=== PATIENT | female | born 2000 | race Asian ===

== ENCOUNTER 2022-04-22 15:49 | Observation (INO) | payer OTHER, SELFPAY ==
[2022-04-22] VITALS (23 sets, daily range): BP systolic 90–119; BP diastolic 62–90; PULSE 73–231; RESP 13–39; TEMP 36.6–36.9; O2SAT 94–100; BMI 28.4
--- NOTE | ~2022-04-22 | CT_ITS ---
EXAMINATION: CTA chest PE protocol DATE: 04/22/2022 20:50 INDICATION: Chest pain. TECHNIQUE: Computed tomography angiography (CTA) of the chest was performed with 100 mL Omnipaque-350 intravenous contrast timed to evaluate the pulmonary arteries. Coronal maximum intensity projection 3D-reconstructions were created by the technologist. Automated exposure control and iterative reconst ruction technique were employed. The dose-length product was 187.45 mGy-cm. COMPARISON: None. FINDINGS: The lung volumes are small. There are groundglass opacities in the lower lobes and left upp er lobe. No pleural effusion. The heart size is normal. No pericardial effusion. There is no pulmonar y embolus. The bones are unremarkable. IMPRESSION: 1. No pulmonary embolus. 2. Small lung volumes and groundglass opacities in the lower lobes and left upper lobe, which may be atelectasis and/or mild pulmonary edema. Reviewed, dictated and finalized at location A. FIRST ASSIST REGISTERED NURSE IMPRESSION: 1. No pulmonary embolus. 2. Small lung volumes and groundglass opacities in the lower lobes and left upp er lobe, which may be atelectasis and/or mild pulmonary edema.
--- NOTE | ~2022-04-22 | XR_ITS ---
EXAMINATION: XR chest 1V portable 04/22/2022 16:25 INDICATION: Supraventricular tachycardia PROCEDURE: AP portable chest COMPARISON: No prior studies for comparison. FINDINGS: The lungs are clear. The cardiomediastinal silhouette is within normal limits. There are no pleural effusions. There is no pneumothorax suspected. IMPRESSION: 1: NO ACUTE CARDIOPULMONARY DISEASE. Reviewed, dictated and finalized at location A. S ARCHITECT
--- NOTE | 2022-04-22 15:57 | ECG_ITS ---
Rate 79 ID 165 QRSd 81 QT 337 QTc 388 --[place]-- P 49 QRS 30 T 2 SINUS RHYTHM MINOR NONSPECIFIC T-WAVE FLATTENING BORDERLINE ECG Electronically Signed On 04-23-2022 15:05:36 COAGULATING OPERATOR by Cyrus Swanson M.D. NO PREVIOUS ECG AVAILABLE [facility]
--- NOTE | 2022-04-22 15:57 | PC.NURSE ---
Pt given 12 Adenosine given IVP per COLTON Patterson at bedside, HR 226 at this time.
[2022-04-22] MEDS: ADENOSINE IV SOLN 6 MG/2 ML VIAL 12 MG IV PUSH (16:02)
[2022-04-22] MEDS: SODIUM CHLORIDE 0.9% IV 1,000 ML 999 ML IV CONT (16:02)
[2022-04-22] MEDS: ONDANSETRON INJ 4 MG/2 ML VIAL IV PUSH (16:03)
--- NOTE | 2022-04-22 16:07 | ED.GENADULT ---
HPI - General Adult General Chief complaint: Chest Pain Stated complaint: SOB CP ADENOSINE 6MG/12MG History of Present Illness HPI narrative: 21-year-old female presented the emergency department for evaluation of chest pain and tachycardia. Patient reports that she has a possible prior history of SVT when she was in the but this was not treated with cardiac medications. Patient states prior to arrival she had onset of the rapid heart rate. Patient did call EMS for the symptoms. Patient was treated with 6 and 12 of Adenocard and did have cardioversion back to normal sinus rhythm. Upon arrival to the emergency department patient once again switched back to SVT. During her periods of SVT patient had significant chest pain. Patient denies any prior significant past medical history. Patient denies any heavy use of caffeine or stimulants. Patient denies any alcohol consumption. Patient denies any prior cardiac history. Related Data Home Medications Medication Instructions Recorded Confirmed No Home Medications 04/22/22 04/22/22 Allergies Allergy/AdvReac Type Severity Reaction Status Date / Time No Known Allergies Allergy Verified 04/22/22 16:01 Review of Systems Review of Systems: CONSTITUTIONAL: Denies fever, chills, or sweats. EYES: Denies visual changes, redness, or discharge. ENT: Denies rhinorrhea, congestion, sore throat, or otalgia. CARDIOVASCULAR: See HPI RESPIRATORY: Denies cough or dyspnea. GASTROINTESTINAL: Denies abdominal pain, nausea, vomiting, or diarrhea. GENITOURINARY: Denies dysuria or hematuria. SKIN: Denies rash or itching. MUSCULOSKELETAL: Denies back pain, joint pain, or myalgia. NEUROLOGIC: Denies headache, numbness, or weakness. 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 She has no children . She is not . She denies any alcohol marijuana or illicit drugs. She is single but has a significant other. Code status full code Smoking status: Never smoker Alcohol intake: current Drinks per week: 1 Substance use: never Lack of Transportation: No Lack of Food: Never True Current Housing: I Have Housing Concerned About Future Housing: No Difficulty Paying Gas/Electric Bills: No Difficulty Paying for Meds: No Currently Unemployed: No Education: Bachelor's Degree Difficulty w/ Childcare or Family Care: No Spiritual care concerns: No Exam Narrative: APPEARANCE: Well appearing, no pain, no distress, well-nourished. HEAD: normocephalic, atraumatic. EYES: PERRLA/EOMI, conjunctivae clear. NOSE: Normal no drainage EARS:TMS clear with good light reflex. THROAT: Pharynx clear, no exudate. NECK: Supple. No adenopathy, no masses. RESPIRATORY: Airway patent, respirations nonlabored. Clear to auscultation bilaterally, no rales, rhonchi, wheezing. CARDIOVASCULAR: Tachycardia with a heart rate into the 220s ABDOMINAL: Soft, nontender, nondistended, normal bowel sounds MUSCULOSKELETAL: Moves all extremities. Strength/ROM intact, No edema, No calf tenderness. NEURO: Alert. Cranial nerves II through XII intact. Grossly intact SKIN: Warm, dry. Normal Color Course Course Emergency Course: 21-year-old female with SVT and chest pain. Patient was initially converted with 6 of Adenocard by EMS. Patient then symptomatic into SVT and then was converted again with 12 of Benicar. Upon arrival to emergency de
[2022-04-22] MEDS: METOPROLOL TARTRATE INJ 5 MG/5 ML VIAL 15 MG (16:11)
[2022-04-22] MEDS: AMIODARONE 150 MG/D5W 100 ML 150 MG/100 ML BAG 600 MG IV CONT (16:17)
[2022-04-22] MEDS: AMIODARONE 360 MG/D5W 200 ML 360 MG/200 ML BAG 33.33 MG IV CONT (16:18)
[2022-04-22] MEDS: MORPHINE SULFATE (*CRX) 4 MG/ML INJ (16:21)
[2022-04-22 16:28] LABS: Basophils Percent Auto 0.4 % (0.2-1.2); Eosinophils Absolute Auto 0.1 K/mm3 (0-0.3); Eosinophils Percent Auto 0.8 % (0-4.4); Hematocrit 36.4 % (37.0-47.0); Immature Granulocyte Absolute 0.02 K/mm3 (0.00-0.031); Immature Granulocyte Percent A 0.3 % (0-0.5); Lymphocytes Absolute Auto 2.36 K/mm3 (0.9-3.2); Lymphocytes Percent Auto 31.5 % (18.3-44.2); Mean Corpuscular Hemoglobin 30.9 pg (26-34); Mean Corpuscular Volume 93.8 fl (80-100); Mean Platelet Volume 10.1 fl (7.4-10.4); Monocytes Absolute Auto 0.3 K/mm3 (0.1-0.6); Monocytes Percent Auto 3.9 % (2.6-8.5); Neutrophils Absolute Auto 4.7 K/mm3 (1.3-6.7); Neutrophils Percent Auto 63.1 % (45.5-73.1); Platelet Count Result 333 k/mm3 (150-375); Red Blood Count 3.88 M/mm3 (4.2-5.4); Red Cell Distribution Width 12.4 % (11.5-14.5); White Blood Count 7.5 K/mm3 (4.5-10.0)
[2022-04-22 16:37] LABS: Alanine Aminotransferase 15 U/L (6-35); Albumin Level 3.9 g/dL (3.5-5.1); Alkaline Phosphatase 49 U/L (38-126); Anion Gap 3 mmol/L (8-16); Aspartate Amino Transferase 22 U/L (14-36); Bilirubin,Total 0.3 mg/dL (0.2-1.3); Blood Urea Nitrogen 8 mg/dL (7-17); Calcium 8.4 mg/dL (8.4-10.2); Carbon Dioxide 28 mmol/L (22-30); Chloride 105 mmol/L (98-107); Estimated Glomerular Filt Rate > 60; Glucose 73 mg/dL (65-110); Magnesium 1.9 mg/dL (1.6-2.3); Phosphorus 2.4 mg/dL (2.5-4.5); Potassium 3.4 mmol/L (3.4-5.0); Sodium 136 mmol/L (137-145)
[2022-04-22 16:49] LABS: Troponin I 0.018 ng/mL (0.000-0.034)
[2022-04-22] MEDS: SODIUM CHLORIDE 0.9% IV 1,000 ML 100 ML IV CONT (17:26)
--- NOTE | 2022-04-22 17:50 | ECG_ITS ---
Measurements Intervals [place] Rate: 77 P: 28 HI: 145 QRS: 33 QRSD: 72 T: 3 QT: 349 QTc: 396 Interpretive Statements SINUS RHYTHM NONSPECIFIC T-WAVE ABNORMALITY COMPARED TO ECG 04/22/2022 16:18:52 NO SIGNIFICANT CHANGES Electronically Signed On 04-23-2022 15:13:19 EXPLOSIVE OPERATOR FUSE by Cyrus Swanson M.D. [facility]
--- NOTE | 2022-04-22 18:02 | PM.IMHP ---
H&P: HPI History of Present Illness Date/Time: 04/22/22 18:02 Chief Complaint: Chest pain Narrative: This is a 21-year-old female patient who has a history of SVT. The patient stated that when she was any as she had at least 2 other times but it stopped abruptly. Today the patient tried to do the Valsalva maneuver and it did not slow her heart rate down. This caused her a tab chest pain. The patient had symptomatic SVT. The patient was given 6 mg of adenosine which slowed the heart out briefly. Her initial heart rate was 220s. The patient went back into SVT and was given 12 mg of adenosine. Again the patient slow down briefly but then went back into SVT again. The patient was then given a 3rd dose of adenosine. After the 3rd dose the patient still was in normal sinus rhythm for few minutes and then went back in SVT. The patient was given a dose of IV Lopressor. Cardiology was called and they recommended that the patient be placed on amiodarone. The patient no longer has any complaints of chest pain. The patient takes no medications on any routine basis. Her 1st troponin was nonreactive. Her 2nd troponin was 0.265. The patient was negative for influenza a B RSV and COVID. The patient was also given normal saline and morphine in the emergency room. Cardiology had been consulted from ED. the patient is being admitted to observation status on the date of service of 04/22/2022. Review of Systems Review of Systems: See HPI All systems reviewed & are unremarkable except as noted in HPI and below Constitutional: Constitutional: Reports as per HPI and Reports no additional constitutional complaints Eyes: Eyes: Reports as per HPI and Reports no additional eye complaints ENT: Reports system reviewed and no additional complaints, except as documented and Reports Normal hearing present Cardiovascular: Cardiovascular: Reports no additional cardiovascular complaints Respiratory: Respiratory: Reports no additional respiratory complaints and Reports no additional respiratory complaints Gastrointestinal: Gastrointestinal: Reports as per HPI and Reports no additional gastrointestinal complaints Musculoskeletal: Musculoskeletal: Reports no additional musculoskeletal complaints Integumentary/Breasts: Skin/Breast: Reports system reviewed and no additional complaints, except as docu and Reports as per HPI Neurologic: Reports system reviewed and no additional complaints, except as documented, Reports as per HPI and Reports Normal hearing present Psychiatric: Psychiatric: Reports no additional psychiatric complaints and Reports as per HPI Endocrine: Endocrine: Reports no additional endocrine complaints Hematologic/Lymphatic: Hematologic/Lymphatic: Reports no additional hematologic/lymphatic complaints Allergic/Immunologic: Allergic/Immunologic: Reports no additional allergic/immunologic complaints PMFSH Past Medical History Medical History SVT (supraventricular tachycardia) Surgical History Surgical History No significant past surgical history Family History Family History Mother Cervical cancer Father Diabetes mellitus Social History Social History (Updated 04/22/22 @ 20:23 by Vivian Morgan NP) Social History: She lives with friends and is a full-time student at [employer] majoring in [employer] science . She has no children . She is not . She denies any alcohol marijuana or illicit drugs. She is single but has a significant other. Code status full code Smoking status: Never smoker Meds Home Medications and Allergies Home Medications Medication Instructions Recorded Confirmed Type No Home Medications 04/22/22 04/22/22 History Allergies Allergy/AdvReac Type Severity Reaction Status Date / Time No Known
[2022-04-22 18:03] LABS: Appearance Urine Slightly Cloudy (Clear); Bilirubin Urine Negative (Negative); Blood Urine 3+ (Negative); Color Urine Light Yellow (Yellow); Glucose Urine UA Negative (Negative); Ketones Urine Negative (Negative); Leukocyte Esterase Ur Trace LEU/UL (Negative); Nitrate Urine Negative (Negative); Protein Urine Negative (Negative); Specific Grav Ur 1.015 (1.001-1.035); Urobilinogen Urine 0.2 mg/dL (<2.0)
[2022-04-22 18:18] LABS: Bacteria Urine Trace /hpf; Mucus Urine Rare /lpf; RBC Urine 0-2 /hpf (0-2); Squamous Epithelial Cell Urine Moderate /hpf (Few)
[2022-04-22 18:23] LABS: Add Urine Microscopic? YES
[2022-04-22 19:05] LABS: Influenza A QL RT-PCR Negative (Negative); Influenza B QL RT-PCR Negative (Negative); RSV RNA, RT-PCR Negative (Negative); SARS-CoV-2 RNA PCR Negative
--- NOTE | 2022-04-22 19:31 | PC.NURSE ---
Received report from Lawrence BOTELLO. First encounter w/ pt. Pt resting comfortably in bed, on panel monitor showing sinus rhythm in the 80's bpm. Pt denies any chest pain. Pt resting comfortably inbed, NAD, all needs addressed, no question at this time.
[2022-04-22 19:59] LABS: Troponin I 0.265 ng/mL (0.000-0.034)
--- NOTE | 2022-04-22 20:01 | ECG_ITS ---
Measurements Intervals [place] Rate: 68 P: 25 [place]: 155 QRS: 34 QRSD: 69 T: 5 QT: 370 QTc: 396 Interpretive Statements SINUS RHYTHM NONSPECIFIC T-WAVE ABNORMALITY COMPARED TO ECG 04/22/2022 20:05:05 NO SIGNIFICANT CHANGES Electronically Signed On 04-23-2022 15:16:08 JOURNALISTS AND OTHER WRITERS by Cyrus Swanson M.D.
--- NOTE | 2022-04-22 20:59 | PC.NURSE ---
This patient, Spencer Monterroso, was admitted to IMU Room 211-01. Patient/family oriented to hospital policies and general routines including ID bracelet, bed and alarms, visiting hours, pain management, procedures, bathroom and other care routines, personal items, smoking policy, room service/diet, and visiting hours. Information on how to activate the Rapid Response Team has been discussed. Patient/Family are encouraged to report perceived risks to care and to ask questions if they do not understand what they are told or what they should do.
[2022-04-22] MEDS: AMIODARONE 360 MG/D5W 200 ML 360 MG/200 ML BAG 16.67 MG IV CONT (22:37)
[2022-04-23] VITALS (11 sets, daily range): BP systolic 108–125; BP diastolic 69–79; PULSE 65–87; RESP 14–20; TEMP 36.6–36.8; O2SAT 100
--- NOTE | 2022-04-23 | ECHO_ITS ---
Patient Info Name: Spencer Monterroso Age: 21 years : 2000 Gender: Female Ht: 65 in Wt: 170 lbs BSA: 1.90 m2 HR: 87 bpm BP: 125 / 75 mmHg Heart Rhythm: Sinus Rhythm Technical Quality: Good Exam Date: 04/23/2022 12:51 PM Exam Location: [facility] Pulmonary Exam Room: 211 Patient Status: Inpatient Admit Date: 04/22/2022 Staff Ordering Physician: Cyrus Swanson MD Lever Operator: Trina Mariano RDCS Attending Provider: Cyrus Rai MD Referring Physician: Sky MENDIETA; Exam Type: CA echo doppler color flow Study Info Indications - svt atrial flutter Complete two-dimensional, color flow and Doppler transthoracic echocardiogram is performed. Summary 1. Complete two-dimensional, color flow and Doppler transthoracic echocardiogram is performed. 2. Unremarkable 2D Doppler echocardiogram. 3. Trivial amount of tricuspid valve regurgitation is within physiologic normal limits. Left Ventricle Left ventricular chamber dimension is normal. Left ventricular systolic function is normal, estimated at 60-65%. The left ventricular diastolic function is normal. Right Ventricle Right ventricular chamber dimension is normal. Left Atria Left atrial chamber dimension is normal. Right Atria Right atrial chamber dimension is normal. Aortic Valve The aortic valve is normal. Pulmonic Valve The pulmonic valve is normal. Mitral Valve The mitral valve has normal leaflets. Tricuspid Valve The tricuspid valve leaflets are normal. There is trace tricuspid valve regurgitation. Pericardium/Pleural The pericardium appears normal. Aorta The aortic root size at the sinus of Valsalva is normal. Left Ventricular Outflow Tract Name Value Normal LVOT 2D LVOT Diameter 2.0 cm LVOT Doppler LVOT Peak Gradient 6 mmHg LVOT Mean Gradient 3 mmHg LVOT VTI 24 cm LVOT VTI/AV VTI Ratio 1.0 LVOT Stroke Volume 71 ml LVOT CO 15.8 l/min LVOT CI 8.3 l/min/m2 Pulmonic Valve Name Value Normal PV Doppler PV Peak Gradient 2 mmHg Mitral Valve Name Value Normal MV Doppler MV Decel Sullivan 600 cm/s2 MV PHT 40 ms MV Area (PHT) 5.5 cm2 4.0-5.0 MV Diastolic Function MV E Peak Velocity
[2022-04-23 04:52] LABS: Basophils Percent Auto 0.4 % (0.2-1.2); Eosinophils Absolute Auto 0.1 K/mm3 (0-0.3); Eosinophils Percent Auto 0.8 % (0-4.4); Hematocrit 32.6 % (37.0-47.0); Hemoglobin 10.6 g/dL (12.0-15.0); Immature Granulocyte Absolute 0.01 K/mm3 (0.00-0.031); Immature Granulocyte Percent A 0.1 % (0-0.5); Lymphocytes Absolute Auto 3.06 K/mm3 (0.9-3.2); Lymphocytes Percent Auto 38.3 % (18.3-44.2); Mean Corpuscular HGB Conc 32.5 g/dl (32-36); Mean Corpuscular Hemoglobin 30.9 pg (26-34); Mean Platelet Volume 10.2 fl (7.4-10.4); Monocytes Absolute Auto 0.4 K/mm3 (0.1-0.6); Monocytes Percent Auto 5.3 % (2.6-8.5); Neutrophils Absolute Auto 4.4 K/mm3 (1.3-6.7); Neutrophils Percent Auto 55.1 % (45.5-73.1); Nucleated Red Blood Cells Perc 0.3 % (0.0-0.2); Platelet Count Result 257 k/mm3 (150-375); Red Blood Count 3.43 M/mm3 (4.2-5.4); Red Cell Distribution Width 12.4 % (11.5-14.5)
[2022-04-23 05:00] LABS: Alanine Aminotransferase 14 U/L (6-35); Albumin Level 3.4 g/dL (3.5-5.1); Alkaline Phosphatase 45 U/L (38-126); Anion Gap 3 mmol/L (8-16); Aspartate Amino Transferase 20 U/L (14-36); Bilirubin,Total 0.3 mg/dL (0.2-1.3); Blood Urea Nitrogen 6 mg/dL (7-17); Calcium 7.7 mg/dL (8.4-10.2); Carbon Dioxide 25 mmol/L (22-30); Chloride 109 mmol/L (98-107); Estimated CRCL calculation 128 ml/min; Estimated Glomerular Filt Rate > 60; Glucose 92 mg/dL (65-110); Magnesium 1.8 mg/dL (1.6-2.3); Potassium 3.6 mmol/L (3.4-5.0); Sodium 137 mmol/L (137-145)
[2022-04-23] MEDS: SODIUM CHLORIDE 0.9% IV 1,000 ML 100 ML IV CONT (05:01)
[2022-04-23 05:03] LABS: Lactic Acid Reflex 0.7 mmol/L (0.7-2.0)
[2022-04-23] MEDS: ENOXAPARIN 40 MG/0.4 ML SYRINGE SUB-Q (09:16)
[2022-04-23 09:43] LABS: Free T4 Free Thyroxine Reflex 1.49 ng/dL (0.78-2.19)
--- NOTE | 2022-04-23 11:57 | PM.CNCAR ---
Assessment and Plan Assessment and plan (1) SVT (supraventricular tachycardia): Code(s): I47.1 - Supraventricular tachycardia Status: Acute Plan This is a young otherwise healthy 21-year-old presenting with symptomatic supraventricular tachycardia. I am suspicious this arrhythmia may well be atypical atrial flutter since in the emergency room is seem to behave as such where there was brief improvement with a dentist in but only to rapidly become tachycardic once again. This may well have been miss interpreted as converting to sinus rhythm. Unfortunately no one recorded any rhythm strips while this was going on. All we have now is a rhythm strip from the ambulance that documents this very rapid SVT and 3 electrocardiograms here which look essentially normal. I am going to stop this IV amiodarone that is running replaced with metoprolol and obtain an echocardiogram. If that looks normal we will allow this lady to be discharged and I would like to arrange electrophysiology consultation so that this young lady could potentially be seen for definitive/ablate of treatment so that she is not requiring medical treatment of these arrhythmias for many decades Cyrus Swansno MD [facility] History of Present Illness History of Present Illness Consult date/time: 04/23/22 11:57 Reason For Visit: SVT Narrative: This is a very pleasant 21-year-old [place] female who I am seeing at the request of the hospitalist because of supraventricular tachycardia. Patient is unknown to me prior to this encounter and she has not been hospitalized in her life previous to this. She states that she has been experiencing episodes of intermittent tachycardia with palpitations for about 5 years. The episodes have generally been brief and self-limited and she has not sought medical attention for any of this. Yesterday she had an episode that was not self-limited she was experiencing tachycardia associated with central chest pain and became concerned when the symptom persisted and so an ambulance was called to her home. Apparently she was found to be a supraventricular tachycardia and was brought to the emergency room. According to the records she was given several doses of adenosine at 6 and at 12 mg which according to the note briefly converted her to sinus rhythm and then she reverted back to SVT. She was then given intravenous amiodarone and since then her rhythm has been stable. Unfortunately there are no rhythm strips on the chart that document any of this nor are there any 12 lead ECGs recorded with her in this sustained SVT. Fortunately the patient was given a rhythm strip EKG by the EMS which she was able to pull lot of her person show to me. It ago includes a recording of a very rapid SVT with a heart rate of about 220 beats per minute. There was no evidence of pre-excitation there is a suggestion on the rhythm strip of atypical atrial flutter although that cannot be conclusively determined on review of the rhythm strip. In any event since being placed on amiodarone she is in sinus rhythm and she is asymptomatic. She has no other past medical history and is very hopeful to be discharged because as it happens this weekend is her birthday and her family/relatives have traveled here from [place] to celebrate her birthday with her. Review of Systems Constitutional: Constitutional: Reports no additional constitutional complaints Eyes: Eyes: Reports no additional eye complaints ENT: Reports system reviewed and no additional complaints, except as documented Cardiovascular: Cardiovascular: Reports as per HPI, Reports chest pain and Reports palpitations Respiratory: Respiratory: Reports no additional respiratory complaints Gastrointestinal: Gastrointestinal: Reports no additional gastrointestinal complaints Musculoskeletal: Musculoskeletal: Reports no additional musculoskeletal complaints Integumentary/Breasts: Skin/Breast: Reports system reviewed and no add
--- NOTE | 2022-04-23 13:11 | PM.IMPN ---
Progress Note: A&P Assessment and Plan (1) SVT (supraventricular tachycardia): Code(s): I47.1 - Supraventricular tachycardia Status: Acute Assessment and Plan: Cardiology has been consulted. -the patient has gotten 3 doses of adenosine. 6 mg, 12 mg and 12 mg. -currently on amiodarone Subjective Date/time seen: 04/23/22 13:11 Heart rate is still elevated when I was in the room 210. This is despite being on amiodarone. Charted vitals show heart rate between 60 and 90 Exam Const: General: cooperative, healthy appearing, comfortable, no acute distress, well developed, alert, awake, Physically active, average body habitus and well nourished Nutritional Appearance: average body habitus and well nourished Orientation/consciousness: oriented to person, oriented to place, oriented to time and patient oriented x3 Limitations: no limitations HENMT: Head: normal to inspection, No palpable skull fracture present, normocephalic and atraumatic Ears: hearing grossly normal bilaterally and external ears normal Face/Nose/Sinus: Normal external nose present and Normal nares present Eyes: General: appearance normal, both eyes and all related structures Alignment and Position: alignment normal Periorbital: periorbital findings normal Eyelids: eyelids normal Sclera: sclerae normal Pupils: Equal, round and reactive pupils present EOM: EOMs intact bilaterally Neck: Neck: normal visual inspection, full ROM, no lymphadenopathy, trachea midline and supple Thyroid: thyroid normal Chest: Chest palpation & inspection: normal inspection of the chest Resp: Effort & Inspection: normal respiratory effort Auscultation: clear to auscultation bilaterally Cardio: Palpation: normal PMI Rate: regular rate Rhythm: regular rhythm Heart sounds: S1 normal heart sound present and S2 normal heart sound present Peripheral pulses: Peripheral pulses 2+ throughout GI: Inspection: normal to inspection Auscultation: normal bowel sounds Rectal Exam: deferred : General: Yes no CVA tenderness Back/Spine/Pelvis: Back: no CVA tenderness Cervical Spine: cervical ROM normal Thoracic/Lumbar Spine: thoracic and lumbar spine normal to inspection Pelvis: no pain with anterior-posterior compression Skin: General skin exam: normal color Lesions: no lesions Rashes: no rashes Trauma: no lacerations or abrasions Wounds: no wounds Hair: normal Nails: normal Neuro: General: oriented to person, oriented to place, oriented to time and patient oriented x3 Cranial nerves: Yes Equal, round and reactive pupils present and Yes Normal hearing present Cognition (Neuro): normal cognition Speech: normal speech Gait exam (Neuro): Normal gait present Motor exam (neuro): 5/5 motor strength present throughout Sensory Exam: normal sensation Extrem: General: normal to inspection Right upper extremity: normal to inspection and shoulder/upper arm Left upper extremity: normal to inspection and shoulder/upper arm Right lower extremity: normal to inspection Left lower extremity: normal to inspection Psych: Appearance: grossly normal Mental Status: mental status grossly normal Speech and movement: Normal speech and movement present Affect: normal affect Attitude: cooperative Thought process: Normal thought process present Insight: Good insight present (Psych) Judgement: Good judgement present (Psych) Objective Data Vital Signs Vital Signs: Vital Signs - 24 hr 04/22/22 15:52 04/22/22 15:57 04/22/22 16:00 Temperature 97.8 F Pulse Rate 220 H 231 H 132 H Respiratory Rate 39 H Blood Pressure 115/74 Pulse Oximetry 100 Oxygen Delivery Room Air 04/22/22 16:11 04/22/22 16:17 04/22/22 16:18 Temperature Pulse Rate 198 H 186 H 82 Respiratory Rate Blood Pressure 108/79 Pulse Oximetry Oxygen Delivery 04/22/22 16:01 04/22/22 16:05 04/22/22 16:22 Temperature Pulse Rate 109 H 217 H 73 Respiratory Rate 30 H 19 13 Blood Pres
[2022-04-23] MEDS: METOPROLOL SUCCINATE EXT REL 50 MG TABCR PO (13:29)
--- NOTE | 2022-04-23 16:06 | PM.DS ---
DS: Admitting Diagnosis Discharge Date 04.23.22 Admitting Diagnosis svt DS: Discharge Diagnosis Discharge Diagnosis (1) SVT (supraventricular tachycardia): Code(s): I47.1 - Supraventricular tachycardia Status: Acute Assessment and Plan: Cardiology has been consulted. -the patient has gotten 3 doses of adenosine. 6 mg, 12 mg and 12 mg. -currently on amiodarone DS: Summary Hospital Course Hospital Course: admitted for svt vs a flutter - cardiology consult - recommended bb and possible EP study - this will be set up as outpatient Time Spent with Patient Time attestation: Total time spent providing and/or coordinating discharge services: Exam Const: General: cooperative, healthy appearing, comfortable, no acute distress, well developed, alert, awake, Physically active, average body habitus and well nourished Nutritional Appearance: average body habitus and well nourished Orientation/consciousness: oriented to person, oriented to place, oriented to time and patient oriented x3 Limitations: no limitations HENMT: Head: normal to inspection, No palpable skull fracture present, normocephalic and atraumatic Ears: hearing grossly normal bilaterally and external ears normal Face/Nose/Sinus: Normal external nose present and Normal nares present Eyes: General: appearance normal, both eyes and all related structures Alignment and Position: alignment normal Periorbital: periorbital findings normal Eyelids: eyelids normal Sclera: sclerae normal Pupils: Equal, round and reactive pupils present EOM: EOMs intact bilaterally Neck: Neck: normal visual inspection, full ROM, no lymphadenopathy, trachea midline and supple Thyroid: thyroid normal Chest: Chest palpation & inspection: normal inspection of the chest Resp: Effort & Inspection: normal respiratory effort Auscultation: clear to auscultation bilaterally Cardio: Palpation: normal PMI Rate: regular rate Rhythm: regular rhythm Heart sounds: S1 normal heart sound present and S2 normal heart sound present Peripheral pulses: Peripheral pulses 2+ throughout GI: Inspection: normal to inspection Auscultation: normal bowel sounds Rectal Exam: deferred : General: Yes no CVA tenderness Back/Spine/Pelvis: Back: no CVA tenderness Cervical Spine: cervical ROM normal Thoracic/Lumbar Spine: thoracic and lumbar spine normal to inspection Pelvis: no pain with anterior-posterior compression Skin: General skin exam: normal color Lesions: no lesions Rashes: no rashes Trauma: no lacerations or abrasions Wounds: no wounds Hair: normal Nails: normal Neuro: General: oriented to person, oriented to place, oriented to time and patient oriented x3 Cranial nerves: Yes Equal, round and reactive pupils present and Yes Normal hearing present Cognition (Neuro): normal cognition Speech: normal speech Gait exam (Neuro): Normal gait present Motor exam (neuro): 5/5 motor strength present throughout Sensory Exam: normal sensation Extrem: General: normal to inspection Right upper extremity: normal to inspection and shoulder/upper arm Left upper extremity: normal to inspection and shoulder/upper arm Right lower extremity: normal to inspection Left lower extremity: normal to inspection Psych: Appearance: grossly normal Mental Status: mental status grossly normal Speech and movement: Normal speech and movement present Affect: normal affect Attitude: cooperative Thought process: Normal thought process present Insight: Good insight present (Psych) Judgement: Good judgement present (Psych) DS: Data Data Completed and Pending Labs on day of discharge: Labs from last 24 hours 04/23/22 04/23/22 04/23/22 04:25 04:25 04:25 WBC RBC Hgb Hct MCV MCH MCHC RDW Plt Count MPV Immature Gran % (Auto) Neut % (Auto) Lymph % (Auto) [place] % (Auto) Eos % (Auto) Baso % (Auto) Lymph # (Auto) [place] # (Auto) Eos # (Auto)
== END 2022-04-23 16:27 | disposition home or self-care (01) ==
LOC: ANHED 17:50 → ANHIMU 19:33
PROVIDERS: Emergency Medicine; Nurse Practitioner; Admitting Provider Chiropractor; Emergency Provider Emergency Medicine; Visit Provider Chiropractor
DX: I47.1 Supraventricular tachycardia (principal); Z20.822 Contact with and (suspected) exposure to COVID-19; R91.8 Other nonspecific abnormal finding of lung field; F10.90 Alcohol use, unspecified, uncomplicated
CPT/HCPCS: 36415; 71045; 71275; 80053; 81001; 81025; 83605; 83735; 84100; 84439; 84443; 84480; 84484; 85025; 87086; 87637; 93005; 93306; 96361; 96365; 96366; 96372; 96375; 99285; A9270; G0378; J0153; J0282; J1650; J2270; J2405; J7030; Q9967